=== PATIENT | female | born 1940 | race African-American/Black ===

== ENCOUNTER 2021-04-06 09:43 | Emergency (ER) | payer MEDICARE, MEDICAID ==
[~2021-04-06] VITALS: Ht 162.6 cm; Wt 60.0 kg
[2021-04-06] MEDS ORDERED: ACETAMINOPHEN 325MG TABLET PO ONE (11:15)
[2021-04-06 12:00] VITALS: BP 139/78
== END 2021-04-06 12:28 | disposition home or self-care (01) ==
LOC: ER 10:09
DX: M25.512 Pain in left shoulder (principal); I10 Essential (primary) hypertension; E78.00 Pure hypercholesterolemia, unspecified; W01.0XXA Fall on same level from slipping, tripping and stumbling without subsequent striking against object, initial encounter; Y93.89 Activity, other specified; Y92.811 Bus as the place of occurrence of the external cause
CPT/HCPCS: 73030; 93005; 99283; A4565

== ENCOUNTER 2023-04-28 15:40 | Emergency (ER) | payer MEDICARE, MEDICAID ==
[~2023-04-28] VITALS: Ht 167.6 cm; Wt 68.0 kg
[2023-04-28 15:51] VITALS: BP 182/95; PULSE 70; RESP 16; TEMP 98.1; O2SAT 98
[2023-04-28] MEDS ORDERED: IRBE75TA9 MT (15:52)
[2023-04-28] MEDS ORDERED: ATOR40TA70 MT (15:52)
== END 2023-04-28 16:48 | disposition home or self-care (01) ==
LOC: ER 15:40
DX: Z76.0 Encounter for issue of repeat prescription (principal); I10 Essential (primary) hypertension
CPT/HCPCS: 99283